=== PATIENT | male | born 1980 | race Caucasian/White ===

== ENCOUNTER 2023-11-10 21:35 | Inpatient (IN) | payer OTHER, SELFPAY ==
[2023-11-11] MEDS ORDERED: Hydrocortisone Sod Succ/PF 100 mg/2 ml Vial ONE (00:18)
[2023-11-11] MEDS ORDERED: methylPREDNISolone Sod Succ/PF 125 MG/2 ML VIAL IVP SCH (00:30)
[2023-11-11] MEDS ORDERED: Communication Order-Pharmacy FS PRN (00:34)
[2023-11-11] MEDS ORDERED: EPINEPHrine 1 MG/ML VIAL ONE (00:39)
[2023-11-11] MEDS: Sodium Chloride 0.9% 1,000 ML IV SCH ×3 (01:00→04:42)
[2023-11-11] MEDS ORDERED: EPINEPHrine 4 MG in Dextrose 5% in Water 250 ML IVP SCH (01:00)
[2023-11-11 01:46] VITALS: BMI 32.1
[2023-11-11] MEDS: Famotidine/PF 20 mg/2ml Vial SLOW IVP SCH ×2 (02:37→13:25)
[2023-11-11] MEDS: metroNIDAZOLE 500 MG in Premix 1 BAG IVPB SCH ×3 (02:37→18:26)
[2023-11-11] MEDS ORDERED: VANCOMYCIN 2 GRAM/400 ML BAG 2 GM in Premix 1 BAG IVPB SCH (03:00)
[2023-11-11] MEDS: Cefepime 2 GM in Sodium Chloride 0.9% 100 ML IVPB SCH ×2 (03:45→13:26)
[2023-11-11 04:27] LABS: #Eosinphils 0.1 10x3/uL (0.0-0.5); #Monocytes 0.8 10x3/uL (0.0-1.1); #Neutrophils 15.3 10x3/uL (1.5-8.4); %Basophils 0.2 % (0.0-2.0); %Eosinophils 0.7 % (0.0-6.0); %Lymphocytes 3.2 % (18.0-47.0); %Monocytes 4.9 % (0.0-10.0); %Neutrophils 90.6 % (40.0-75.0); Hematocrit 47.8 % (38.8-50.0); Hemoglobin 16.5 g/dL (13.5-17.5); Mean Corpuscular HGB CONC 34.5 g/dL (32.0-36.0); Mean Corpuscular Hemoglobin 30.6 pg (27.0-33.0); Mean Corpuscular Volume 88.7 fl (81.2-95.1); Mean Platelet Volume 9.5 fl (7.4-10.4); Platelet Count 291 10x3/uL (150-450); RBC Distribution Width 12.3 % (11.5-14.5); Red Blood Cell (RBC) Count 5.39 10x6/uL (4.32-5.72); White Blood Cell (WBC) Count 16.9 10x3/uL (3.5-10.5)
[2023-11-11 04:43] LABS: ALT (SGPT) 23 U/L (8-55); AST (SGOT) 12 U/L (5-34); Albumin 3.1 g/dL (3.5-5.0); Alkaline Phosphatase 48 U/L (40-110); Anion Gap 13 mmol/L (10-20); BUN (Urea Nitrogen) 30 mg/dL (8.9-20.6); Bilirubin, Total 0.6 mg/dL (0.2-1.2); Calc. Creatinine Clearance 75 mL/min (70-130); Calcium 7.8 mg/dL (7.8-10.44); Carbon Dioxide 19 mmol/L (22-29); Chloride 104 mmol/L (98-107); Estimated GFR 47; Globulin 2.2 g/dL (2.4-3.5); Glucose 204 mg/dL (70-105); Magnesium 1.3 mg/dL (1.6-2.6); Potassium 3.6 mmol/L (3.5-5.1); Protein, Total 5.3 g/dL (6.0-8.3); Sodium 132 mmol/L (136-145)
[2023-11-11 04:51] LABS: Troponin I 0.026 ng/mL (< 0.028)
[2023-11-11] MEDS ORDERED: Magnesium 2 GM/50 ML(in water) 2 GM in Premix 1 BAG IVPB SCH (06:30)
[2023-11-11] MEDS: NS 0.9% w/ 20 MEQ KCL 1,000 ML/1,000 ML BAG IV SCH ×2 (08:17→15:43)
[2023-11-11] MEDS: methylPREDNISolone Sod Succ 40 MG VIAL IVP SCH ×3 (08:17→18:26)
[2023-11-11] MEDS: Enoxaparin 40 MG (0.4 mL) SYRINGE SC SCH (10:17)
[2023-11-11 17:44] LABS: Campy jejuni + coli by PCR Negative (Negative); STEC Shiga Toxin 1+2 Negative (Negative); Salmonella spp. by PCR Negative (Negative); Shigella spp + EIEC by PCR Negative (Negative)
[2023-11-12] MEDS: Famotidine/PF 20 mg/2ml Vial SLOW IVP SCH (01:42)
[2023-11-12] MEDS: methylPREDNISolone Sod Succ 40 MG VIAL IVP SCH ×2 (01:42→08:07)
[2023-11-12] MEDS: Cefepime 2 GM in Sodium Chloride 0.9% 100 ML IVPB SCH (01:43)
[2023-11-12] MEDS ORDERED: Vancomycin 1.5 GRAM/300 ML BAG 1.5 GM in Premix 1 BAG IVPB SCH ×2 (03:00→15:00)
[2023-11-12] MEDS: metroNIDAZOLE 500 MG in Premix 1 BAG IVPB SCH (03:06)
[2023-11-12] MEDS: NS 0.9% w/ 20 MEQ KCL 1,000 ML/1,000 ML BAG IV SCH ×2 (03:34→06:13)
[2023-11-12 05:12] LABS: Anion Gap 10 mmol/L (10-20); BUN (Urea Nitrogen) 15 mg/dL (8.9-20.6); Calc. Creatinine Clearance 154 mL/min (70-130); Calcium 8.1 mg/dL (7.8-10.44); Carbon Dioxide 21 mmol/L (22-29); Chloride 115 mmol/L (98-107); Estimated GFR 108; Glucose 143 mg/dL (70-105); Potassium 4.6 mmol/L (3.5-5.1); Sodium 141 mmol/L (136-145)
[2023-11-12 05:16] LABS: #Eosinphils 0.1 10x3/uL (0.0-0.5); #Monocytes 0.8 10x3/uL (0.0-1.1); #Neutrophils 15.7 10x3/uL (1.5-8.4); %Basophils 0.1 % (0.0-2.0); %Eosinophils 0.3 % (0.0-6.0); %Lymphocytes 5.4 % (18.0-47.0); %Monocytes 4.3 % (0.0-10.0); %Neutrophils 89.2 % (40.0-75.0); Hematocrit 35.7 % (38.8-50.0); Hemoglobin 12.2 g/dL (13.5-17.5); Mean Corpuscular HGB CONC 34.2 g/dL (32.0-36.0); Mean Corpuscular Hemoglobin 30.3 pg (27.0-33.0); Mean Corpuscular Volume 88.6 fl (81.2-95.1); Mean Platelet Volume 9.5 fl (7.4-10.4); Platelet Count 236 10x3/uL (150-450); RBC Distribution Width 12.7 % (11.5-14.5); Red Blood Cell (RBC) Count 4.03 10x6/uL (4.32-5.72); White Blood Cell (WBC) Count 17.6 10x3/uL (3.5-10.5)
[2023-11-12] MEDS: Enoxaparin 40 MG (0.4 mL) SYRINGE SC SCH (08:07)
[2023-11-12 12:07] VITALS: BP 114/51; TEMP 97.6
== END 2023-11-12 12:45 | disposition home or self-care (01) | DRG 916 ==
LOC: UNDOADMOB 22:51 → CSHTELE 22:51 → OBSVTOIN 22:53 → CSHIMCU 11-11 00:15 → CSHTELE 11-11 00:15
PROVIDERS: ADMIT Family Medicine; ATTEND Internal Medicine
PROC: 3E033XZ Introduction of Vasopressor into Peripheral Vein, Percutaneous Approach (ICD-10-PCS; principal; 2023-11-10)
DX: T78.09XA Anaphylactic reaction due to other food products, initial encounter (principal); F98.8 Other specified behavioral and emotional disorders with onset usually occurring in childhood and adolescence; J45.909 Unspecified asthma, uncomplicated; Z79.899 Other long term (current) drug therapy; F17.290 Nicotine dependence, other tobacco product, uncomplicated; E86.0 Dehydration; Z53.8 Procedure and treatment not carried out for other reasons
CPT/HCPCS: 36415; 71045; 80048; 80053; 82274; 83735; 84484; 85025; 87505; J0171; J0692; J1650; J2920; J2930; J3370; J3475; J3480; J3490; J7050; J7070; S0028